=== PATIENT | female | born 1940 | race Caucasian/White ===

== ENCOUNTER 2017-08-28 11:41 | Emergency (ER) | payer MEDICARE, OTHER ==
[~2017-08-28] VITALS: Ht 162.6 cm; Wt 94.0 kg
[~2017-08-28 11:41] MED LIST: AMIT10TA13 PO; BUSP5 PO; CALA180T PO; CIPR250T2 PO; CLON.1T TOP; DEPA500T3 PO; DETR4CAP PO; LEXA10TA PO; LORA-474 PO; PLAV75TA PO; PRIL20CA PO; PROM25TA5 PO; SUCR1TAB PO; VITA100020; ZOCO40TA PO; ZOFR4TAB PO; ZOFR4TAB3 SL
[2017-08-28 12:03] VITALS: BP 130/60; PULSE 66; RESP 16; TEMP 98.5; O2SAT 90
--- NOTE | 2017-08-28 12:31 | PD ---
HPI Chief Complaint: Fall Time Seen by Provider: 12:22 Travel History International Travel<30 days: No Contact w/Intl Traveler<30days: No Traveled to known affect area: No History of Present Illness HPI 77-year-old female arrives by EMS following a mechanical fall. She fell outside on pavement. She reports walking too fast and her legs gave out. She fell onto the right knee. She was ambulatory afterwards. There is pain in the right knee and about the right face which also struck the ground. No visual change. She takes Plavix every day no anticoagulation otherwise. No loss of consciousness or vomiting. PFSH Past Medical History Hx Anticoagulant Therapy: Yes (PLAVIX) High Cholesterol: Yes Diminished Hearing: No Hypertension: Yes Past Surgical History Appendectomy: Yes Gynecologic Surgery: Yes (RIGHT BREAST LUMPECTOMY) Hysterectomy: Yes Social History Alcohol Use: No Tobacco Use: No Substance Use: No Allergies-Medications (Allergen,Severity, Reaction): Coded Allergies: ciprofloxacin (Unverified Allergy, Intermediate, Ulcers, 08/28/17) causes mouth ulcers Reported Meds & Prescriptions Reported Meds & Active Scripts Active Reported Verapamil (Verapamil HCl) 120 Mg Tab 180 Mg PO DAILY Detrol LA (Tolterodine Tartrate) 2 Mg Cap 2 Mg PO BID Carafate (Sucralfate) 1 Gram Tab 1 Gm PO TID On empty stomach Simvastatin 40 Mg Tab 40 Mg PO HS Zofran (Ondansetron HCl) 4 Mg Tab 4 Mg PO Q8HR PRN Omeprazole 20 Mg Tab 20 Mg PO DAILY Vitamin B-12 (Cyanocobalamin) 1,000 Mcg Tab 1,000 Mcg PO DAILY Lorazepam 1 Mg Tab 1 Mg PO Q8H PRN Lexapro (Escitalopram Oxalate) 10 Mg Tab 10 Mg PO DAILY Depakote ER (Divalproex Sodium) 500 Mg [place] 500 Mg PO DAILY Plavix (Clopidogrel Bisulfate) 75 Mg Tab 75 Mg PO DAILY Clonidine 168 HR Patch (Clonidine HCl) 0.1 Mg/24 Hr Patch 1 Patch T-DERMAL Q7D Buspirone (Buspirone HCl) 5 Mg Tab 5 Mg PO BID Amitriptyline (Amitriptyline HCl) 10 Mg Tab 10 Mg PO DAILY Review of Systems Except as stated in HPI: all other systems reviewed are Neg General / Constitutional: No: Fever Physical Exam Narrative GENERAL: 77-year-old female pleasant well-nourished well-developed no acute distress Vital Signs Date Time Temp Pulse Resp B/P (MAP) Pulse Ox O2 Delivery O2 Flow Rate FiO2 08/28/17 12:03 98.5 66 16 130/60 (83) 90 SKIN: Warm and dry. HEAD: Atraumatic. Normocephalic. Ecchymosis abrasion overlying the right forehead and right maxillary face. EYES: Pupils equal and round. No scleral icterus. No injection or drainage. ENT: No nasal bleeding or discharge. Mucous membranes pink and moist. No septal hematoma. No evidence skull base fracture. NECK: Trachea midline. No JVD. CARDIOVASCULAR: Regular rate and rhythm. RESPIRATORY: No accessory muscle use. Clear to auscultation. Breath sounds equal bilaterally. GASTROINTESTINAL: Abdomen soft, non-tender, nondistended. Hepatic and splenic margins not palpable. MUSCULOSKELETAL: Extremities without clubbing, cyanosis, or edema. No obvious deformities. NEUROLOGICAL: Awake and alert. No obvious cranial nerve deficits. Motor grossly within normal limits. Five out of 5 muscle strength in the arms and legs. Normal speech. PSYCHIATRIC: Appropriate mood and affect; insight and judgment normal. Data Data Last Documented VS Vital Signs Date Time Temp Pulse Resp B/P (MAP) Pulse Ox O2 Delivery O2 Flow Rate FiO2 08/28/17 14:15 08/28/17 13:18 79 16 95 Room Air 08/28/17 12:[address] Brain W/O Iv Contrast(Rout) (08/28/17 12:25) Knee, Complete (4vws) (08/28/17 ) Tetanus/Diphtheria Tox Adult (Tetanus/Di (08/28/17 12:45) Ed Discharge Order (08/28/17 13:51) [facility] Medical Decision Making Medical Screen Exam Complete: Yes Emergency Medical Condition: Yes Medical Record Reviewed: Yes Differential Diagnosis Intracranial hemorrhage, skull fracture, contusion, abrasion Narrative Course Last Impressions Head CT 08/28/17 1225 Signed Impressions: Service Date/Time: Monday, August 28, 2017 13:28 - CONCLUSION: No acute intracranial findings Jose Garces MD Knee X-Ray 08/28/17 0000 Signed Impressions: Service Date/Time: Monday, August 28, 2017 12:37 - CONCLUSION: 1. Mild osteoarthritis of the right knee. Arnold Kim MD Imaging unremarkable. Pain controlled. The patient is ready for discharge home. Diagnosis Primary Impression: Fall Qualified Codes: W19.XXXA - Unspecified fall, initial encounter Additional Impressions: Abrasion Contusion of right patella Qualified Codes: S80.01XA - Contusion of right knee, initial encounter Med/Other Pt SpecificInfo: No Change to Meds Disposition: 01 DISCHARGE HOME Condition: Stable Ricky Moreland MD Aug 28, 2017 12:31
[2017-08-28] MEDS ORDERED: TETANUS/DIPHTHERIA TOXOID ADULT 0.5 ML VIAL IM ONE (12:45)
--- NOTE | 2017-08-28 12:58 | RADRPT ---
EXAM DATE/TIME: 08/28/2017 12:37 [facility] COMPARISON: No previous studies available for comparison. INDICATIONS : Fall, right knee pain. MEDICAL HISTORY : None. SURGICAL HISTORY : right knee surgery ENCOUNTER: Initial ACUITY: 1 day PAIN SCORE: 5/10 LOCATION: Right knee FINDINGS: Four view examination of the right knee demonstrates mild osteoarthritis of the right knee. No acute fracture or subluxation. No bony destructive changes. Trace joint fluid. CONCLUSION: 1. Mild osteoarthritis of the right knee. Arnold Kim MD on August 28, 2017 at 12:55 Board Certified Radiologist. This report was verified electronically.
[2017-08-28 13:18] VITALS: BP 107/57; PULSE 79; RESP 16; O2SAT 95
[2017-08-28] MEDS ORDERED: PLAV75TA29 PO (13:31)
[2017-08-28] MEDS ORDERED: AMIT10TA6 PO (13:31)
[2017-08-28] MEDS ORDERED: ZOFR4TAB PO (13:31)
[2017-08-28] MEDS ORDERED: CARA1TAB6 PO (13:31)
[2017-08-28] MEDS ORDERED: SIMV40TA PO (13:31)
[2017-08-28] MEDS ORDERED: LORA1TAB12 PO (13:31)
[2017-08-28] MEDS ORDERED: CLON0.1D T-DERMAL (13:31)
[2017-08-28] MEDS ORDERED: VERA120T3 PO (13:31)
[2017-08-28] MEDS ORDERED: VITA10002 PO (13:31)
[2017-08-28] MEDS ORDERED: DETR2CAP PO (13:31)
[2017-08-28] MEDS ORDERED: LEXA10TA PO (13:31)
[2017-08-28] MEDS ORDERED: BUSP5TAB PO (13:31)
[2017-08-28] MEDS ORDERED: OMEP20TA93 PO (13:31)
[2017-08-28] MEDS ORDERED: DEPA500T3 PO (13:31)
--- NOTE | 2017-08-28 13:39 | RADRPT ---
EXAM DATE/TIME: 08/28/2017 13:28 [facility] COMPARISON: No previous studies available for comparison. INDICATIONS : Tripped and fell, left facial, forehead abrasion. RADIATION DOSE: 63.97 CTDIvol (mGy) MEDICAL HISTORY : Hypercholesterolemia. Hypertension. SURGICAL HISTORY : Hysterectomy. Rt lumpectomy ENCOUNTER: Initial ACUITY: 1 day PAIN SCALE: 5/10 LOCATION: Right cranial TECHNIQUE: Multiple contiguous axial images were obtained of the head. Using automated exposure control and adj ustment of the mA and/or kV according to patient size, radiation dose was kept as low as reasonably a chievable to obtain optimal diagnostic quality images. DICOM format image data is available electro nically for review and comparison. FINDINGS: There is mild right orbital frontal encephalomalacia. Moderate diminished attenuation in periventricu lar white matter noted. No evidence of intracranial mass or hemorrhage. Nothing to suggest acute inju ry or acute infarction. The extracranial structures are benign and intact. CONCLUSION: No acute intracranial findings Jose Garces MD on August 28, 2017 at 13:35 Board Certified Radiologist. This report was verified electronically.
== END 2017-08-28 14:16 | disposition home or self-care (01) ==
LOC: PHED 11:41
DX: S80.01XA Contusion of right knee, initial encounter (principal); M17.11 Unilateral primary osteoarthritis, right knee; E78.00 Pure hypercholesterolemia, unspecified; I10 Essential (primary) hypertension; W19.XXXA Unspecified fall, initial encounter; Z23 Encounter for immunization; Z79.02 Long term (current) use of antithrombotics/antiplatelets; Z79.899 Other long term (current) drug therapy
CPT/HCPCS: 70450; 73564; 90471; 90714